=== PATIENT | female | born 1980 | race Caucasian/White ===

== ENCOUNTER 2020-08-03 14:25 | Emergency (ER) | payer OTHER ==
[2020-08-03 14:32] VITALS: BP 112/72
--- NOTE | 2020-08-03 14:34 | ED Physician Documentation ---
PD HPI URI - Stated complaint Stated Complaint: C+ - Chief complaint Chief Complaint: General - History obtained from History obtained from: Patient - History of Present Illness Timing - onset: How many days ago (5) Timing duration: Days (5) Timing details: Gradual onset, Still present Associated symptoms: Nasal congestion, Sore throat, Dry cough, Other (frontal headache, general malaise). No: Fever, Chills, Dyspnea, NVD Contributing factors: Sick contact (she had dinner with a couple a week ago that were feeling okay at the time but developed cough and such through the week and tested positive for COVID couple days ago.) Similar symptoms before: Has not had sx before Review of Systems Constitutional: reports: Chills, Myalgias. denies: Fever Nose: reports: Rhinorrhea / runny nose, Congestion Throat: reports: Sore throat Cardiac: denies: Chest pain / pressure Respiratory: reports: Cough (mild). denies: Dyspnea, Wheezing GI: reports: Diarrhea (loose). denies: Nausea, Vomiting Skin: denies: Rash PD PAST MEDICAL HISTORY - Past Medical History Past Medical History: No - Allergies Allergies/Adverse Reactions: Allergies Allergy/AdvReac Type Severity Reaction Status Date / Time No Known Drug Allergies Allergy Verified 08/03/20 14:28 - Living Situation Living Situation: reports: Alone Living Arrangement: reports: At home - Social History Does the pt smoke?: No Does the pt drink ETOH?: Yes ETOH Use: Other (occasional) Does the pt have substance abuse?: No PD ED PE NORMAL - Vitals Vital signs reviewed: Yes - General General: Alert and oriented X 3, No acute distress, Well developed/nourished - HEENT HEENT: Ears normal, Moist mucous membranes, Pharynx benign - Neck Neck: Supple, no meningeal sign, No adenopathy - Cardiac Cardiac: RRR, No murmur - Respiratory Respiratory: Clear bilaterally - Derm Derm: Normal color, Warm and dry, No rash - Extremities Extremities: No edema, No calf tenderness / cord Results - Vitals Vitals: Vital Signs - 24 hr 08/03/20 14:28 Temperature 36.9 C Heart Rate 58 L Respiratory 18 Rate Blood Pressure 112/72 O2 Saturation 100 Oxygen O2 Source Room air PD MEDICAL DECISION MAKING - ED course Complexity details: considered differential, d/w patient Departure - Departure Disposition: 01 Home, Self Care Clinical Impression: Exposure to COVID-19 virus Upper respiratory infection Qualifiers: URI type: unspecified URI Qualified Code(s): J06.9 - Acute upper respiratory infection, unspecified Condition: Stable Record reviewed to determine appropriate education?: Yes Instructions: ED URI Viral Comments: This seems likely to be a viral illness although could be just allergies. Stay well-hydrated. Use a Claritin or Zyrtec type antihistamine for congestion. Tylenol if needed for pains or fevers. The Covid test should result in 1 to 2 days. Return if significantly worsening. Discharge Date/Time: 08/03/20 15:24
[2020-08-03] MEDS ORDERED: ACETAMINOPHEN 325 MG TABLET PO STA (15:11)
[2020-08-03] MEDS ORDERED: CETIRIZINE 10 MG TABLET PO STA (15:11)
== END 2020-08-03 15:24 | disposition home or self-care (01) ==
LOC: ED 14:25
DX: J06.9 Acute upper respiratory infection, unspecified (principal); R19.7 Diarrhea, unspecified; Z20.828 Contact with and (suspected) exposure to other viral communicable diseases
CPT/HCPCS: 87635; 99282; 99283; A9270